=== PATIENT | female | born 2005 | race Caucasian/White ===

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

== ENCOUNTER 2023-02-04 00:52 | Emergency (ER) | payer OTHER, SELFPAY ==
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
[2023-02-04 00:53] VITALS: BP 122/68; PULSE 117; RESP 18; TEMP 37.3; O2SAT 98
--- NOTE | 2023-02-04 01:49 | PC.NURSE ---
Patient taken to xray at this time from the waiting room.
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
[2023-02-04] MEDS: IBUPROFEN 600 MG TABLET PO (03:04)
[2023-02-04 03:11] VITALS: BP 111/68; PULSE 77; RESP 18; O2SAT 98
== END 2023-02-04 03:12 | disposition home or self-care (01) ==
PROVIDERS: Emergency Provider Physician Assistant; PCP Family Medicine
DX: S92.341A Displaced fracture of fourth metatarsal bone, right foot, initial encounter for closed fracture (principal); S92.301A Fracture of unspecified metatarsal bone(s), right foot, initial encounter for closed fracture; S80.212A Abrasion, left knee, initial encounter; S80.211A Abrasion, right knee, initial encounter; Y04.0XXA Assault by unarmed brawl or fight, initial encounter
CPT/HCPCS: 73564; 73610; 73630; 99284; A9270

== ENCOUNTER 2024-04-02 15:01 | Emergency (ER) | payer OTHER, BC, SELFPAY ==
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
[2024-04-02 15:15] VITALS: BP 123/88; PULSE 100; RESP 16; TEMP 37.1; O2SAT 100
--- NOTE | 2024-04-02 15:31 | ECG_ITS ---
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 Measurements Intervals [place] Rate: 87 P: 45 ND: 172 QRS: 22 QRSD: 94 T: 21 QT: 339 QTc: 408 Interpretive Statements SINUS RHYTHM BASELINE ARTIFACT- II, III, AVF NORMAL ECG No previous ECG available for comparison Electronically Signed On 04-02-2024 16:50:58 CDT by Sahil Ramey D.O.
[2024-04-02 15:43] LABS: Glucose Point of Care 105 mg/dl (65-105)
[2024-04-02 15:45] VITALS: BP 112/67; PULSE 86
[2024-04-02 15:46] VITALS: BP 111/78; PULSE 87
== END 2024-04-02 15:48 | disposition short-term general hospital (02) ==
PROVIDERS: Emergency Provider Nurse Practitioner Family
DX: R55 Syncope and collapse (principal); R42 Dizziness and giddiness; H53.8 Other visual disturbances
CPT/HCPCS: 82948; 93005; 99213; G0463

== ENCOUNTER 2024-04-07 05:58 | Emergency (ER) | payer OTHER, BC, SELFPAY ==
[2024-04-07 06:02] VITALS: BP 109/87; PULSE 115; RESP 20; TEMP 36.9; O2SAT 100
[2024-04-07] MEDS: SODIUM CHLORIDE 0.9% IV 1,000 ML 999 ML IV CONT (06:14)
[2024-04-07] MEDS: ONDANSETRON INJ 4 MG/2 ML VIAL IV PUSH (06:14)
[2024-04-07 06:19] VITALS: BP 125/83; PULSE 102; RESP 16; O2SAT 99
[2024-04-07 06:23] LABS: Basophils Percent Auto 0.4 % (0.2-1.2); Eosinophils Absolute Auto 0.1 K/mm3 (0-0.3); Hemoglobin 14.7 g/dL (12.0-15.0); Immature Granulocyte Absolute 0.03 K/mm3 (0.00-0.031); Immature Granulocyte Percent A 0.4 % (0-0.5); Lymphocytes Absolute Auto 1.43 K/mm3 (0.9-3.2); Lymphocytes Percent Auto 20.5 % (18.3-44.2); Mean Corpuscular Hemoglobin 32.5 pg (26-34); Mean Corpuscular Volume 92.9 fl (80-100); Mean Platelet Volume 9.9 fl (7.4-10.4); Monocytes Absolute Auto 0.7 K/mm3 (0.1-0.6); Monocytes Percent Auto 9.9 % (2.6-8.5); Neutrophils Absolute Auto 4.7 K/mm3 (1.3-6.7); Neutrophils Percent Auto 67.8 % (45.5-73.1); Platelet Count Result 247 k/mm3 (150-375); Red Blood Count 4.52 M/mm3 (4.2-5.4); Red Cell Distribution Width 12.4 % (11.5-14.5)
--- NOTE | 2024-04-07 06:31 | ED.GENADULT ---
HPI - General Adult General Chief complaint: Nausea/Vomiting/Diarrhea Stated complaint: vomiting X3 weeks Time Seen by Provider: 04/07/24 06:04 History of Present Illness HPI narrative: Patient is a 18-year-old female who presents to the emergency department this morning complaining of nausea, vomiting and acid reflux. Patient states that she was out drinking last night and had a little bit too much to drink and then went and had [employer] afterwards and starting at 2 in the morning she has been vomiting and puking since then. Patient is unsure if this is due to the alcohol if it is food poisoning from the [employer]. She denies any abdominal pain, diarrhea, denies any fevers or chills at home, denies any chance of and is currently denying any chest pain. Patient states that it feels as though her heart is racing. No additional symptoms or concerns at this time. Related Data Allergies Allergy/AdvReac Type Severity Reaction Status Date / Time No Known Allergies Allergy Verified 04/07/24 05:59 Review of Systems Review of Systems: All systems are reviewed and are negative unless stated otherwise in the HPI. [facility] Past Medical History Medical History Patient denies medical problems Surgical History Surgical History No pertinent past surgical history Social History Social History Smoking status: Never smoker Exam Narrative: General: Alert, awake, afebrile, in no acute distress. HEENT: PERRL, no rhinorrhea, no post nasal drip, oropharynx clear. Cardiovascular: Regular rate and rhythm, no murmurs, rubs or gallops, no peripheral edema. Respiratory: Clear to auscultation bilaterally, no tachypnea, no wheezing, no rhonchi, no rubs, no respiratory distress. Abdomen: Soft, nontender, nondistended, no rebound, no guarding, no peritoneal signs. Musculoskeletal: No joint swelling or deformity, normal muscle tone. Skin: No rashes or petechia, no signs of infection. Neurological: Alert and oriented to person, place, and time. Follows all commands. No focal deficits, speech is clear and fluent. Course Vital Signs Vital signs: Vital Signs Temperature 98.4 F 04/07/24 06:02 Pulse Rate 115 H 04/07/24 06:02 Respiratory Rate 20 04/07/24 06:02 Blood Pressure 109/87 04/07/24 06:02 Pulse Oximetry 100 04/07/24 06:02 Oxygen Delivery Room Air 04/07/24 06:02 Temperature 98.4 F 04/07/24 06:02 Pulse Rate 102 H 04/07/24 06:19 Respiratory Rate 16 04/07/24 06:19 Blood Pressure 125/83 04/07/24 06:19 Pulse Oximetry 99 04/07/24 06:19 Oxygen Delivery Room Air 04/07/24 06:02 Medical Decision Making MDM Narrative Medical decision making narrative: The patient was evaluated by myself in the emergency department. History is obtained from patient who is an independent historian and physical exam was performed. External medical records were reviewed at this time. IV was established and pertinent tests were ordered. Patient was administered 2 L IV fluid bolus with normal saline, 4 mg of IV Zofran and 20 mg of IV Pepcid. Laboratory results obtained revealing no acute process. Differential diagnosis considerations include dehydration, gastroenteritis and acute viral syndrome. Comorbidities impacting this visit include none. I have evaluated and discussed social determinants of health with the patient that could potentially impact subsequent diagnosis and treatment plans. On repeat assessment of the patient, reevaluation revealed that the patient is doing well and is in no acute distress. Patient symptoms have improved since she arrived to our emergency department. Repeat vital signs were all reviewed and noted to be stable. Differential diagnosis and treatment plan were discussed with the patient at bedside. Patien
[2024-04-07 06:34] LABS: Alanine Aminotransferase 21 U/L (6-35); Albumin Level 4.3 g/dL (3.5-5.1); Alkaline Phosphatase 67 U/L (38-126); Anion Gap 6 mmol/L (4-12); Aspartate Amino Transferase 26 U/L (14-36); Bilirubin,Total 0.5 mg/dL (0.2-1.3); Blood Urea Nitrogen 11 mg/dL (7-17); Carbon Dioxide 27 mmol/L (22-30); Chloride 106 mmol/L (98-107); Estimated CRCL calculation 91 ml/min; Estimated Glomerular Filt Rate > 60; Glucose 121 mg/dL (65-110); Lipase 53 U/L (23-300); Magnesium 1.8 mg/dL (1.6-2.3); Potassium 3.6 mmol/L (3.4-5.0); Sodium 139 mmol/L (137-145)
[2024-04-07] MEDS: PANTOPRAZOLE SODIUM IV 40 MG VIAL IV PUSH (06:43)
[2024-04-07 06:51] LABS: SPREG INTERNAL CONTROL Positive; Serum Qual hCG Negative
[2024-04-07 06:57] VITALS: BP 125/83; PULSE 90; RESP 19; O2SAT 100
== END 2024-04-07 06:59 | disposition home or self-care (01) ==
LOC: ANHED 06:57
PROVIDERS: Emergency Provider Emergency Medicine
DX: K52.9 Noninfective gastroenteritis and colitis, unspecified (principal); E86.0 Dehydration
CPT/HCPCS: 36415; 80053; 82248; 83690; 83735; 84703; 85025; 96361; 96374; 96375; 99284; C9113; J2405; J7030

== ENCOUNTER 2024-05-12 12:25 | Emergency (ER) | payer OTHER, BC, SELFPAY ==
--- NOTE | ~2024-05-12 | XR_ITS ---
Clinical Indication: Dizziness PA and lateral views of the chest: Comparison: 11/20/2021 Findings: The lungs are clear, without evidence of focal consolidation or pleural effusion. Cardiome diastinal silhouette is within normal limits. Bones and soft tissues are unremarkable. Impression: Normal chest. Reviewed, dictated and finalized at location . Impression: Normal chest.
--- NOTE | ~2024-05-12 | CT_ITS ---
CT brain wo con Ordering provider: Frankie Kelsey APRN History: 18 years Female with . dizziness . Comparison: July 25, 2022 Technique: CT of the head without contrast. Radiation reduction technique utilized. DLP is 835.9 mGy-cm. FINDINGS: BRAIN PARENCHYMA AND CSF SPACES: No midline shift, mass effect or hemorrhage. The brain parenchyma a nd CSF spaces are otherwise normal. VISUALIZED PARANASAL SINUSES: Well aerated. MASTOIDS: Well aerated. BONES: The bones appear intact. SOFT TISSUES: Visualized nasopharynx is normal. Superficial soft tissues are normal. IMPRESSION: No acute intracranial findings. Reviewed, dictated and finalized at location A.
[2024-05-12 12:23] VITALS: BP 140/85; PULSE 76; RESP 13; TEMP 36.7; O2SAT 100
--- NOTE | 2024-05-12 12:33 | ECG_ITS ---
Test Date: 2024-05-12 13:28:06 Measurements Intervals Declo Rate: 82 P: 52 MD: 167 QRS: 16 QRSD: 94 T: 18 QT: 359 QTc: 421 Interpretive Statements SINUS RHYTHM NORMAL ECG Compared to ECG 04/02/2024 15:39:09 No significant changes Electronically Signed On 05-12-2024 13:29:34 CDT by Sahil Ramey D.O.
[2024-05-12 12:53] LABS: Basophils Percent Auto 0.3 % (0.2-1.2); Eosinophils Absolute Auto 0.1 K/mm3 (0-0.3); Eosinophils Percent Auto 0.9 % (0-4.4); Hematocrit 39.3 % (37.0-47.0); Hemoglobin 13.7 g/dL (12.0-15.0); Immature Granulocyte Absolute 0.02 K/mm3 (0.00-0.031); Immature Granulocyte Percent A 0.3 % (0-0.5); Lymphocytes Absolute Auto 1.27 K/mm3 (0.9-3.2); Mean Corpuscular HGB Conc 34.9 g/dl (32-36); Mean Corpuscular Hemoglobin 32.6 pg (26-34); Mean Corpuscular Volume 93.6 fl (80-100); Mean Platelet Volume 10.2 fl (7.4-10.4); Monocytes Absolute Auto 0.5 K/mm3 (0.1-0.6); Monocytes Percent Auto 7.9 % (2.6-8.5); Neutrophils Absolute Auto 4.5 K/mm3 (1.3-6.7); Neutrophils Percent Auto 70.6 % (45.5-73.1); Platelet Count Result 223 k/mm3 (150-375); Red Cell Distribution Width 11.8 % (11.5-14.5); White Blood Count 6.3 K/mm3 (4.5-10.0)
[2024-05-12 13:06] LABS: Alanine Aminotransferase 18 U/L (6-35); Albumin Level 4.2 g/dL (3.5-5.1); Alkaline Phosphatase 68 U/L (38-126); Anion Gap 8 mmol/L (4-12); Aspartate Amino Transferase 23 U/L (14-36); Blood Urea Nitrogen 11 mg/dL (7-17); Calcium 8.8 mg/dL (8.4-10.2); Carbon Dioxide 27 mmol/L (22-30); Chloride 104 mmol/L (98-107); Estimated CRCL calculation 117 ml/min; Estimated Glomerular Filt Rate > 60; Glucose 96 mg/dL (65-110); Sodium 139 mmol/L (137-145)
--- NOTE | 2024-05-12 14:06 | ED.DIZZY ---
HPI - Dizziness General Chief Complaint: Dizziness Stated Complaint: not feeling well Time Seen by Provider: 05/12/24 13:33 History of Present Illness HPI Narrative: 18 female history of anxiety presents to the emergency room for evaluation of dizziness that has been present for 4 weeks. Patient states she returned from [place] prior to onset, was diagnosed with sun poisoning . Patient states that she has been experiencing dizziness since. Patient denies any visual or hearing changes. Denies any nausea vomiting associated with dizziness. reports occasional headaches.States the dizziness is worse with positional change. Patient also states that 2 weeks ago she was put on sertraline for anxiety and depression. Denies any changes in her dizziness after starting the medication. Denies injury or trauma to head. Related Data Allergies Allergy/AdvReac Type Severity Reaction Status Date / Time No Known Allergies Allergy Verified 04/07/24 05:59 Review of Systems Review of Systems: ROS unremarkable except for note PMFSH Past Medical History Medical History Patient denies medical problems Surgical History Surgical History No pertinent past surgical history Social History Social History Smoking status: Never smoker Exam Narrative: GENERAL: Well-appearing, well-nourished, no physical limitations, and in no acute distress. HEAD: Normocephalic, atraumatic. EYES: Conjunctivae normal, PERRLA and EOMI. ENT: External nose normal, Nares clear, no rhinorrhea or epistaxis. Mucous membranes moist. Oropharynx without tonsillar hypertrophy exudate or other lesions. External ears normal, bilateral TMs normal bilaterally NECK: Supple. No meningeal signs. CHEST: Clear to auscultation. No respiratory distress. No wheezes rales or rhonchi. Heart: regular rate and rhythm EXTREMITIES: Normal range of motion. No edema. No clubbing or cyanosis SKIN: Warm, dry, no rash. No noted wounds NEURO: No focal deficits. Alert and oriented x3. MAEW. CN's II-XI intact bilaterally, normal gait PSYCH: Cooperative. Normal mood and affect. Course Vital Signs Vital signs: Vital Signs Temperature 36.7 C 05/12/24 12:23 Pulse Rate 76 07/09/24 12:23 Respiratory Rate 13 05/12/24 12:23 Blood Pressure 140/85 05/12/24 12:23 Pulse Oximetry 100 05/12/24 12:23 Oxygen Delivery Room Air 05/12/24 12:23 Temperature 36.7 C 05/12/24 12:23 Pulse Rate 76 05/12/24 12:23 Respiratory Rate 13 05/12/24 12:23 Blood Pressure 140/85 05/12/24 12:23 Pulse Oximetry 100 05/12/24 12:23 Oxygen Delivery Room Air 05/12/24 12:23 MDM - Dizziness Lab Data 05/12/24 12:46 05/12/24 12:46 Labs: Lab Results 05/12/24 Range/Units 12:46 WBC 6.3 (4.5-10.0) K/mm3 RBC 4.20 (4.2-5.4) M/mm3 Hgb 13.7 (12.0-15.0) g/dL Hct 39.3 (37.0-47.0) % MCV 93.6 (80-100) fl MCH 32.6 (26-34) pg MCHC 34.9 (32-36) g/dl RDW 11.8 (11.5-14.5) % Plt Count 223 (150-375) k/mm3 MPV 10.2 (7.4-10.4) fl Immature Gran % (Auto) 0.3 (0-0.5) % Neut % (Auto) 70.6 (45.5-73.1) % Lymph % (Auto) 20.0 (18.3-44.2) % Owen % (Auto) 7.9 (2.6-8.5) % Eos % (Auto) 0.9 (0-4.4) % Baso % (Auto) 0.3 (0.2-1.2) % Lymph # (Auto) 1.27 (0.9-3.2) K/mm3 Owen # (Auto) 0.5 (0.1-0.6) K/mm3 Eos # (Auto) 0.1 (0-0.3) K/mm3 Baso # (Auto) 0.0 (0.0-0.1) K/mm3 Abs Immat Gran (auto) 0.02 (0.00-0.031) K/mm3 Absolute Neuts (auto) 4.5 (1.3-6.7) K/mm3 Absolute Nucleated RBC 0.000 (0.0-0.012) K/mm3 Nucleated RBC % 0.0 (0.0-0.2) % Sodium 139 (137-145) mmol/L Potassium 4.0 (3.4-5.0) mmol/L Chloride 104 (98-107) mmol/L Carbon Dioxide 27 (22-30) mmol/L Anion Gap 8 (4-12) mmol/L BUN 11 (7-17) mg/dL Cre
[2024-05-12 14:14] VITALS: BP 121/65; PULSE 83
[2024-05-12 14:15] VITALS: BP 127/69; PULSE 80
[2024-05-12 14:16] VITALS: BP 128/73; PULSE 85
[2024-05-12] MEDS: MECLIZINE HCL 25 MG TABLET PO (15:04)
== END 2024-05-12 15:34 | disposition home or self-care (01) ==
PROVIDERS: Preventive Medicine Aerospace Medicine; Emergency Provider Nurse Practitioner Family; PCP Nurse Practitioner Family
DX: H81.10 Benign paroxysmal vertigo, unspecified ear (principal)
CPT/HCPCS: 36415; 70450; 71046; 80053; 81025; 85025; 93005; 99284; A9270

== ENCOUNTER 2024-07-13 13:08 | Emergency (ER) | payer BC, SELFPAY ==
[2024-07-13 13:31] VITALS: BP 132/83; PULSE 94; RESP 18; TEMP 36.6; O2SAT 100
--- NOTE | 2024-07-13 13:33 | ED.NAVMDI ---
HPI - Nausea/Vomiting/Diarrhea General Chief complaint: Nausea/Vomiting/Diarrhea <Rekha Cook PA-C - Last Filed: 07/13/24 19:17> Stated complaint: dehydrated N/V, ETOH last night <Rekha Cook PA-C - Last Filed: 07/13/24 19:17> Time Seen by Provider: 07/13/24 13:33 <Rekha Cook PA-C - Last Filed: 07/13/24 19:17> Focused HPI: This is a 18-year-old female that presents to the emergency department for nausea and vomiting. Reports she drank alcohol all day yesterday. Today she has felt dizzy, weak and has had nausea and vomiting. Denies fever. GENERAL: Well-appearing, well-nourished, and in no acute distress. HEAD: Normocephalic, atraumatic. CHEST: Clear to auscultation. ?No respiratory distress. HEART: Regular rate and rhythm.? NEURO: ?Alert and oriented x3. Patient screened in triage and initial orders placed.? ?Additional care and disposition to be based upon?diagnostic testing and treatment. <Rekha Cook PA-C - Last Filed: 07/13/24 19:17> Source: patient <Rekha Cook PA-C - Last Filed: 07/13/24 19:17> Mode of arrival: ambulatory <Rekha Cook PA-C - Last Filed: 07/13/24 19:17> Limitations: no limitations <Rekha Cook PA-C - Last Filed: 07/13/24 19:17> History of Present Illness HPI Narrative: Patient is 18-year-old female who presents emergency department with chief complaint of nausea vomiting. Patient reports he drank alcohol yesterday she reports that she was nauseated but currently feels fine and would like to go home <Perry Alexander MD - Last Filed: 07/13/24 16:38> Related Data Allergies/Adverse reactions: Allergies Allergy/AdvReac Type Severity Reaction Status Date / Time No Known Allergies Allergy Verified 04/07/24 05:59 <Rekha Cook PA-C - Last Filed: 07/13/24 19:17> Review of Systems Review of Systems: A 10 system review of systems was completed on the patient and is negative except for what is stated in the HPI. Nursing and ancillary documentation was reviewed. <Perry Alexander MD - Last Filed: 07/13/24 16:38> PMFSH Past Medical History Medical History: Medical History Patient denies medical problems <Rekha Cook PA-C - Last Filed: 07/13/24 19:17> Surgical History Surgical History: Surgical History No pertinent past surgical history <Rekha Cook PA-C - Last Filed: 07/13/24 19:17> Social History Social History: Social History Smoking status: Never smoker <Rekha Cook PA-C - Last Filed: 07/13/24 19:17> Exam Narrative: GENERAL: Well-appearing, well-nourished, and in no acute distress. HEAD: Normocephalic, atraumatic. EYES: PERRLA and EOMI. ENT: Nares clear, no rhinorrhea or epistaxis. Mucous membranes moist. NECK: Supple. CHEST: Clear to auscultation. No respiratory distress. HEART: Regular rate and rhythm. No murmur heard. Normal peripheral pulses. ABDOMEN: Soft, nontender, nondistended, normal active bowel sounds. EXTREMITIES: Normal range of motion. No edema. SKIN: Warm, dry, no rash. NEURO: No focal deficits. Alert and oriented x3. PSYCH: Normal mood and affect. <Perry Alexander MD - Last Filed: 07/13/24 16:38> Course Vital Signs Vital signs: Vital Signs Temperature 97.8 F 07/13/24 13:31 Pulse Rate 94 07/13/24 13:31 Respiratory Rate 18 07/13/24 13:31 Blood Pressure 132/83 07/13/24 13:31 Pulse Oximetry 100 07/13/24 13:31 Oxygen Delivery Room Air 07/13/24 13:31 Temperature 97.8 F 07/13/24 13:31 Pulse Rate 94 07/13/24 13:31 Respiratory Rate 18 07/13/24 13:31 Blood Pressure 132/83 07/13/24 13:31 Pulse Oximetry 100 07/13/24 13:31 Oxygen Delivery Room Air 07/13/24 13:31 <Rekha Cook PA-C - [place]
[2024-07-13 13:55] LABS: BEDSIDEPREGUCG Negative (Negative)
[2024-07-13 14:11] LABS: Basophils Percent Auto 0.3 % (0.2-1.2); Hematocrit 39.4 % (37.0-47.0); Hemoglobin 13.9 g/dL (12.0-15.0); Immature Granulocyte Absolute 0.06 K/mm3 (0.00-0.031); Immature Granulocyte Percent A 0.5 % (0-0.5); Lymphocytes Percent Auto 8.7 % (18.3-44.2); Mean Corpuscular HGB Conc 35.3 g/dl (32-36); Mean Corpuscular Volume 90.6 fl (80-100); Mean Platelet Volume 10.4 fl (7.4-10.4); Monocytes Absolute Auto 0.4 K/mm3 (0.1-0.6); Monocytes Percent Auto 3.7 % (2.6-8.5); Neutrophils Absolute Auto 9.9 K/mm3 (1.3-6.7); Neutrophils Percent Auto 86.8 % (45.5-73.1); Platelet Count Result 255 k/mm3 (150-375); Red Blood Count 4.35 M/mm3 (4.2-5.4); Red Cell Distribution Width 11.9 % (11.5-14.5); White Blood Count 11.5 K/mm3 (4.5-10.0)
[2024-07-13 14:21] LABS: Add Urine Microscopic? YES; Alanine Aminotransferase 17 U/L (6-35); Albumin Level 4.4 g/dL (3.5-5.1); Alkaline Phosphatase 53 U/L (38-126); Anion Gap 14 mmol/L (4-12); Appearance Urine Cloudy (Clear); Aspartate Amino Transferase 27 U/L (14-36); Bacteria Urine 2+ /hpf; Bilirubin Urine Negative (Negative); Bilirubin,Total 0.6 mg/dL (0.2-1.3); Blood Urea Nitrogen 6 mg/dL (7-17); Blood Urine Negative (Negative); Calcium 9.2 mg/dL (8.4-10.2); Carbon Dioxide 25 mmol/L (22-30); Chloride 94 mmol/L (98-107); Color Urine Dark Yellow (Yellow); Estimated CRCL calculation 124 ml/min; Estimated Glomerular Filt Rate > 60; Glucose 105 mg/dL (65-110); Glucose Urine UA Negative (Negative); Ketones Urine Trace mg/dL (Negative); Leukocyte Esterase Ur Trace LEU/UL (Negative); Lipase 41 U/L (23-300); Need Manual Microscopic Reviewed; Nitrate Urine Negative (Negative); Non Pathogenic Casts 0-2; Potassium 3.6 mmol/L (3.4-5.0); Protein Urine 1+ mg/dL (Negative); Sodium 133 mmol/L (137-145); Specific Grav Ur 1.027 (1.001-1.035); Squamous Epithelial Cell Urine Many /hpf (Few); WBC Urine 21-50 /hpf (0-3)
--- NOTE | 2024-07-13 16:38 | PC.NURSE ---
Patient states she is feeling better and wants to leave. Patient refused medication and fluids.
== END 2024-07-13 16:44 | disposition home or self-care (01) ==
PROVIDERS: Physician Assistant; Emergency Provider Emergency Medicine
DX: R11.2 Nausea with vomiting, unspecified (principal); R82.998 Other abnormal findings in urine
CPT/HCPCS: 36415; 80053; 81001; 81025; 83690; 85025; 87086; 99283